=== PATIENT | male | born 1960 | race Caucasian/White ===

== ENCOUNTER 2022-11-05 07:57 | Inpatient (IN) | payer OTHER ==
[~2022-11-05] VITALS: Ht 167.6 cm; Wt 83.2 kg
[~2022-11-05 07:57] MED LIST: CALC667C PO; CELE100C82 PO; CYAN-17 PO; FERR27TA2 PO; HYDR-4798 PO; PREG150C PO
[2022-11-05] MEDS ORDERED: ceFAZolin 1GM/50ML 100 ML IV ONE (08:30)
[2022-11-05] MEDS ORDERED: HYDROmorphone HCL 2 MG/ML VL/or syr IV PRN ×2 (11:00)
[2022-11-05] MEDS ORDERED: METOCLOPRAMIDE HCL 5MG/ml INJ 2ml VIAL IV PRN (11:00)
[2022-11-05] MEDS ORDERED: MORPHINE SULFATE INJ 2 MG/ml SYRG IV PRN ×3 (11:00→14:45)
[2022-11-05] MEDS ORDERED: fentaNYL CITRATE 100 MCG/2 ML VL ONE (11:08)
[2022-11-05] MEDS ORDERED: PROPOFOL 10 MG/ML 20 ML IV ONE (13:23)
[2022-11-05] MEDS ORDERED: NITROGLYCERIN 0.4 MG SL TAB SL PRN (14:45)
[2022-11-05] MEDS ORDERED: ACETAMINOPHEN 325 MG TAB PO PRN (14:45)
[2022-11-05] MEDS ORDERED: DexAMETHasone SOD PHOS 10MG/1ML VIAL INJ IV ONE (14:45)
[2022-11-05] MEDS ORDERED: ONDANSETRON HCL 4 MG/2 ML VIAL IV PRN (14:45)
[2022-11-05] MEDS ORDERED: MORPHINE SULFATE INJ 2 MG/ml SYRG IV ONE (15:54)
[2022-11-05] MEDS: ceFAZolin 1GM/50ML 50 ML IV SCH (17:20)
[2022-11-05] MEDS: HYDROcodone-ACET 10/325MG TAB PO PRN (20:28)
[2022-11-05] MEDS: D5W/SOD CHLO 0.9% 1,000 ML IV SCH (21:04)
[2022-11-05 22:00] VITALS: BP 141/67
[2022-11-05] MEDS: CYCLOBENZAPRINE HCL 10 MG TAB PO SCH (22:30)
[2022-11-05] MEDS: DOCUSATE SOD 100 MG CAP PO SCH (22:30)
[2022-11-06] MEDS: D5W/SOD CHLO 0.9% 1,000 ML IV SCH ×3 (00:45→20:45)
[2022-11-06] MEDS: ceFAZolin 1GM/50ML 50 ML IV SCH (00:57)
[2022-11-06] MEDS: HYDROcodone-ACET 10/325MG TAB PO PRN ×3 (03:32→16:31)
[2022-11-06 05:00] VITALS: BP 142/69
[2022-11-06] MEDS: CYCLOBENZAPRINE HCL 10 MG TAB PO SCH ×3 (05:55→22:17)
[2022-11-06] MEDS: MORPHINE SULFATE INJ 2 MG/ml SYRG IV PRN ×4 (05:56→19:00)
[2022-11-06 08:00] VITALS: BP 118/72
[2022-11-06 09:00] VITALS: BP 118/72
[2022-11-06] MEDS: DOCUSATE SOD 100 MG CAP PO SCH ×2 (10:00→22:17)
[2022-11-06 13:00] VITALS: BP 121/78
[2022-11-06 16:35] VITALS: BP 130/75
[2022-11-06 22:00] VITALS: BP 144/75
[2022-11-07] MEDS: MORPHINE SULFATE INJ 2 MG/ml SYRG IV PRN ×3 (03:42→14:38)
[2022-11-07 05:00] VITALS: BP 112/73
[2022-11-07] MEDS: CYCLOBENZAPRINE HCL 10 MG TAB PO SCH ×2 (05:56→13:57)
[2022-11-07] MEDS: D5W/SOD CHLO 0.9% 1,000 ML IV SCH ×2 (06:41→16:45)
[2022-11-07 08:00] VITALS: BP 138/77
[2022-11-07] MEDS: DOCUSATE SOD 100 MG CAP PO SCH (08:42)
[2022-11-07 12:00] VITALS: BP 129/83
[2022-11-07 16:00] VITALS: BP 127/80
[2022-11-07 17:32] VITALS: BP 127/80
[2022-11-07] MEDS: HYDROcodone-ACET 10/325MG TAB PO PRN (18:36)
== END 2022-11-07 19:00 | disposition home health service (06) | DRG 472 ==
LOC: SUR 07:57 → TELE 14:38 → TELE-WESTW 17:10
PROVIDERS: ADMIT Orthopaedic Surgery; ATTEND Orthopaedic Surgery
PROC: 0RG20A0 Fusion of 2 or more Cervical Vertebral Joints with Interbody Fusion Device, Anterior Approach, Anterior Column, Open Approach (ICD-10-PCS; principal; 2022-11-07)
PROC: 0RB30ZZ Excision of Cervical Vertebral Disc, Open Approach (ICD-10-PCS; 2022-11-07)
PROC: 01N10ZZ Release Cervical Nerve, Open Approach (ICD-10-PCS; 2022-11-07)
PROC: 00NW0ZZ Release Cervical Spinal Cord, Open Approach (ICD-10-PCS; 2022-11-07)
PROC: 4A11X4G Monitoring of Peripheral Nervous Electrical Activity, Intraoperative, External Approach (ICD-10-PCS; 2022-11-07)
DX: M48.02 Spinal stenosis, cervical region (principal); G99.2 Myelopathy in diseases classified elsewhere; J45.909 Unspecified asthma, uncomplicated; G89.29 Other chronic pain; M43.12 Spondylolisthesis, cervical region; M54.12 Radiculopathy, cervical region
CPT/HCPCS: 72040; 76000; 86850; 86900; 86901; G0378; J0690; J2704